=== PATIENT | female | born 1960 ===

== ENCOUNTER 2017-03-18 10:08 | Emergency (ER) | payer OTHER ==
[2017-03-18] MEDS ORDERED: Sodium Chloride 0.9% 1,000 ML IV ONE (10:59)
[2017-03-18] MEDS ORDERED: Sodium Chloride 0.9% 1,000 ML ONE (11:04)
--- NOTE | 2017-03-18 11:04 | C.PDOC ---
History Of Present Illness 56 y/o female presents to ED with complaints of vaginal bleeding for 35 days and onset suprapubic tenderness. Patient reports symptoms developed after a cervical biopsy. Patient was sent from Clinic for evaluation and patient states currently bleeding a little. Patient denies fever, n/v/d, urinary symptoms or any other complaints at this time. (Genoveva Joseph) History Per: Patient History/Exam Limitations: no limitations Onset/Duration Of Symptoms: Days Current Symptoms Are (Timing): Still Present Time Seen by Provider: 03/18/17 10:50 Chief Complaint (Nursing): Female Genitourinary Past Medical History Reviewed: Historical Data, Nursing Documentation, Vital Signs - Medical History PMH: Bronchitis Surgical History: Cholecystectomy Family History: States: No Known Family Hx - Social History Hx Alcohol Use: No Hx Substance Use: No - Immunization History Hx Tetanus Toxoid Vaccination: No Hx Influenza Vaccination: No Hx Pneumococcal Vaccination: No Review Of Systems Except As Marked, All Systems Reviewed And Found Negative. Constitutional: Negative for: Fever, Chills Gastrointestinal: Negative for: Nausea, Vomiting, Diarrhea Genitourinary: Positive for: Vaginal Bleeding. Negative for: Dysuria, Frequency Physical Exam - Physical Exam Appears: Non-toxic, No Acute Distress Skin: Normal Color, Warm Head: Atraumatic, Normacephalic Neck: Normal ROM Cardiovascular: Rhythm Regular, No Murmur Respiratory: Normal Breath Sounds, No Rales, No Rhonchi, No Wheezing Gastrointestinal/Abdominal: Soft, Tenderness (Mild suprapubic tenderness), No Guarding, No Rebound Extremity: Normal ROM, Capillary Refill (<2 seconds) Neurological/Psych: Oriented x3, Normal Motor, Normal Sensation, Normal Reflexes ED Course And Treatment O2 Sat by Pulse Oximetry: 100 (RA) Pulse Ox Interpretation: Normal Medical Decision Making Medical Decision Making: Orders: Labs (Genoveva Joseph) - PA / AUTOMOBILE REPOSSESSOR / Resident Statement MD/DO has reviewed & agrees with the documentation as recorded. - Scribe Statement The provider has reviewed the documentation as recorded by the Scribe - Scribe Statement Jamil Ascencio All medical record entries made by the Scribe were at my direction and personally dictated by me. I have reviewed the chart and agree that the record accurately reflects my personal performance of the history, physical exam, medical decision making, and the department course for this patient. I have also personally directed, reviewed, and agree with the discharge instructions and disposition. (Genoveva Joseph)
[2017-03-18 11:19] LABS: BASO % 0.7 % (0.0-2.0); EOS # 0.2 K/uL (0.0-0.7); EOS % 4.2 % (0.0-4.0); HEMATOCRIT 38.5 % (34.0-47.0); LYMPH # 1.2 K/uL (1.0-4.3); LYMPH % 29.8 % (20.0-40.0); MEAN CELL VOLUME 85.4 fL (81.0-99.0); MEAN CORPUSCULAR HEMOGLOBIN 28.5 pg (27.0-31.0); MEAN CORPUSCULAR HGB CONC 33.4 g/dL (33.0-37.0); MEAN PLATELET VOLUME 7.8 fL (7.2-11.7); MONO # 0.5 K/uL (0.0-0.8); MONO % 13.3 % (0.0-10.0); RED CELL DISTRIBUTION WIDTH 13.4 % (11.5-14.5)
--- NOTE | 2017-03-18 11:21 | C.PDOC ---
History Of Present Illness 56 y/o female presents to ED with complaints of vaginal bleeding for 35 days and onset suprapubic tenderness. Patient reports symptoms developed after a cervical biopsy. Patient was sent from Clinic for evaluation and patient states currently bleeding a little. Patient denies fever, n/v/d, urinary symptoms or any other complaints at this time. Time Seen by Provider: 03/18/17 10:50 Chief Complaint (Nursing): Female Genitourinary History Per: Patient History/Exam Limitations: no limitations Onset/Duration Of Symptoms: Days Current Symptoms Are (Timing): Still Present Past Medical History Reviewed: Historical Data, Nursing Documentation, Vital Signs Vital Signs: Last Vital Signs Temp 98.1 F 03/18/17 12:27 Pulse 75 03/18/17 12:27 Resp 20 03/18/17 12:27 BP 124/69 03/18/17 12:27 Pulse Ox 95 03/18/17 12:27 - Medical History PMH: Bronchitis Surgical History: Cholecystectomy Family History: States: No Known Family Hx - Social History Hx Alcohol Use: No Hx Substance Use: No - Immunization History Hx Tetanus Toxoid Vaccination: No Hx Influenza Vaccination: No Hx Pneumococcal Vaccination: No Review Of Systems Except As Marked, All Systems Reviewed And Found Negative. Constitutional: Negative for: Fever, Chills Gastrointestinal: Positive for: Abdominal Pain. Negative for: Nausea, Vomiting , Diarrhea Genitourinary: Positive for: Vaginal Bleeding. Negative for: Dysuria, Frequency Physical Exam - Physical Exam Appears: Non-toxic, No Acute Distress Skin: Normal Color, Warm Head: Atraumatic, Normacephalic Cardiovascular: Rhythm Regular, No Murmur Respiratory: Normal Breath Sounds, No Rales, No Rhonchi, No Wheezing Gastrointestinal/Abdominal: Soft, Tenderness (Mild suprapubic tenderness), No Guarding, No Rebound Extremity: Normal ROM, Capillary Refill (<2 seconds) Neurological/Psych: Oriented x3 ED Course And Treatment - Laboratory Results Result Diagrams: 03/18/17 11:14 03/18/17 11:14 Lab Interpretation: Normal O2 Sat by Pulse Oximetry: 100 (RA) Pulse Ox Interpretation: Normal - CT Scan/US No standard instances Other Rad Studies (CT/US): Read By Radiologist, Radiology Report Reviewed CT/US Interpretation: FINDINGS: UTERUS: Measures 6.4 x 2.8 x 4.9 cm. Fundal fibroid measures 2.6 x 2.3 x 2.4 cm. No other uterine mass identified. ENDOMETRIUM: Measures 2 mm in diameter. Unremarkable. CERVIX: No cervical abnormality identified. RIGHT OVARY: Measures 2.0 x 1.5 x 1.7 cm. No solid mass. Normal flow. LEFT OVARY: Measures 0.5 x 1.2 x 1.4 cm. No solid mass. Normal flow. FREE FLUID: No significant free fluid noted. OTHER FINDINGS: None. IMPRESSION: 2.6 cm fundal uterine fibroid. Otherwise unremarkable examination. Progress Note: treated with IVF NSS. On re-evaluation abdomen soft non-tender Reassessment Condition: Improved Medical Decision Making Medical Decision Making: Plan: Labs Disposition Counseled Patient/Family Regarding: Studies Performed, Diagnosis, Need For Followup, Rx Given - Disposition Referrals: [facility] [Outside] [facility] [Outside] [facility] [Outside] Alexander Muniz [Staff Provider] - Disposition: HOME/ ROUTINE Disposition Time: 12:30 Condition: STABLE Additional Instructions: Return to ED if any increase symptoms Prescriptions: Naproxen [Naprosyn] 1 tab PO BID PRN #25 tab PRN Reason: Pain Instructions: Dysfunctional Uterine Bleeding (ED) Forms: Work/School/Gym Excuse Print Language: OCCITAN - POA Present On Arrival: None - Clinical Impression Clinical Impression: Vaginal bleeding - PA / UNIT MANAGER / Resident Statement MD/DO has reviewed & agrees with the documentation as recorded. - Scribe Statement The provider has reviewed the documentation as recorded by the Naomiibjorge Ascencio All medical record entries made by the Sabine were at my direction and personally dictated by me. I have reviewed the chart and agree that the record accurately reflects my personal performance of the history, physical exam, medical decision making, and the department course for this patient. I have also personally directed, reviewed, and agree with the discharge instructions and disposition.
[2017-03-18 11:23] LABS: RBC URINE < 1 /hpf (0-3); URINE BILIRUBIN NEGATIVE (NEGATIVE); URINE BLOOD NEGATIVE (NEGATIVE); URINE COLOR Yellow (YELLOW); URINE GLUCOSE (UA) NORMAL (Normal); URINE KETONE NEGATIVE (NEGATIVE); URINE LEUKOCYTE ESTERASE NEG Leu/uL (Negative); URINE PROTEIN NEGATIVE (NEGATIVE); URINE UROBILINOGEN NORMAL mg/dL (0.2-1.0)
[2017-03-18 11:31] LABS: CHLORIDE 103 mmol/L (98-107); POTASSIUM 4.3 mmol/L (3.6-5.2); SODIUM 141 mmol/L (132-148)
[2017-03-18 11:33] LABS: BILIRUBIN,TOTAL 0.6 mg/dL (0.2-1.3); GFR AFRICAN-AMERICAN > 60
[2017-03-18 11:34] LABS: ALB/GLOB RATIO 0.7 (1.0-2.1); ALKALINE PHOSPHATASE 97 U/L (38-126); ALT/SGPT 22 U/L (9-52); AST/SGOT 29 U/L (14-36); BLOOD UREA NITROGEN 12 mg/dL (7-17); CARBON DIOXIDE 27 mmol/L (22-30); GLUCOSE,RANDOM 79 mg/dL (65-105)
[2017-03-18 11:35] LABS: CALCIUM 8.9 mg/dl (8.6-10.4)
--- NOTE | 2017-03-18 12:18 | US ---
HISTORY: vaginal bleeding COMPARISON: None available. TECHNIQUE: Transabdominal and transvaginal FINDINGS: UTERUS: Measures 6.4 x 2.8 x 4.9 cm. Fundal fibroid measures 2.6 x 2.3 x 2.4 cm. No other uterine mass identified. ENDOMETRIUM: Measures 2 mm in diameter. Unremarkable. CERVIX: No cervical abnormality identified. RIGHT OVARY: Measures 2.0 x 1.5 x 1.7 cm. No solid mass. Normal flow. LEFT OVARY: Measures 0.5 x 1.2 x 1.4 cm. No solid mass. Normal flow. FREE FLUID: No significant free fluid noted. OTHER FINDINGS: None. IMPRESSION: 2.6 cm fundal uterine fibroid. Otherwise unremarkable examination.
[2017-03-18 12:28] VITALS: BP 124/69; PULSE 75; RESP 20; TEMP 98.1
[2017-03-18 17:47] VITALS: O2SAT 100
== END 2017-03-18 12:58 | disposition home or self-care (01) ==
LOC: C.ER 10:08
DX: N93.9 Abnormal uterine and vaginal bleeding, unspecified (principal)

== ENCOUNTER 2017-04-03 11:05 | Day surgery (SDC) | payer OTHER ==
[2017-04-02 07:23] VITALS: BMI 23.7
[2017-04-03 11:41] VITALS: O2SAT 99
[2017-04-03] MEDS ORDERED: Lactated Ringer's 1,000 ML IV ONE (14:15)
[2017-04-03] MEDS ORDERED: Midazolam 2 MG/2 ML VIAL ONE (14:16)
[2017-04-03] MEDS ORDERED: Propofol 10 mg/ml Inj (20 ML) ONE ×2 (14:16→14:48)
[2017-04-03] MEDS ORDERED: Strong Iodine Topical Sol. 5%-10% ONE (14:33)
[2017-04-03] MEDS ORDERED: HYDROmorphone 0.5 mg/0.5 ml ISec IVP PRN (15:01)
--- NOTE | 2017-04-03 15:42 | PCM.SURG1 ---
Surgeon's Initial Post Op Note - Surgeon's Notes Surgeon: Dr Muniz Intercell Connector Placer: Genoveva Odell ( FP REsident ) Type of Anesthesia: General Endo Anesthesia Administered By: STEPHANIE Mckeon supervised by DR Jorge L Mckeon Pre-Operative Diagnosis: Severe Cervical Dysplasia Operative Findings: Normal sized uterus with the full squamocolumnar junction seen . IVF intake-200mls. EBL- 3mls. Urine output- 20mls Post-Operative Diagnosis: Same as preop diagnosis Operation Performed: LEEP cone biopsy using Conchis cone excissor Specimen/Specimens Removed: Cervical Tissue Estimated Blood Loss: EBL {In ML}: 3 Post-Op Condition: Good Date of Surgery/Procedure: 04/03/17 Time of Surgery/Procedure: 15:43
[2017-04-04 11:50] VITALS: BP 120/68; PULSE 70; RESP 18; TEMP 97.9
--- NOTE | 2017-04-06 17:08 | OP ---
DATE: 04/03/2017PREOPERATIVE DIAGNOSIS: Severe dysplasia of the cervix. POSTOPERATIVE DIAGNOSIS: Severe dysplasia of the cervix. PROCEDURE DONE: LEEP cone biopsy, using a Gottlieb cone excisor, performed on 04/03/2017. SURGEON: Dr. Muniz. GIFT SHOP ASSISTANT: Genoveva Odell, [facility] resident. TYPE OF ANESTHESIA: General endotracheal. ANESTHESIA ADMINISTERED BY: JULIOCESAR Mckeon, supervised by Dr. Jorge L Mckeon. COMPLICATIONS: There were no complications. OPERATIVE FINDINGS: Included a normal sized uterus, the floor of squamocolumnar junction was seen. There was a Lugol's free area in the path of the ectocervix from 1 o'clock to 3 o'clock after application of the Lugol's iodine. IV FLUID INTAKE: About 200 mL. ESTIMATED BLOOD LOSS: About 3 mL. URINE OUTPUT: About 20 mL of clear urine. DESCRIPTION OF PROCEDURE: After obtaining an informed consent, the patient was sent to the OR and put in a supine position on the OR table. After adequate general anesthesia, the patient was placed in the lithotomy position. The patient was then prepped and draped in the usual sterile fashion. A urinary bladder was drained using a straight cath with output of about 20 mL of clear urine. Using Cusco's speculum, the cervix was exposed and the findings were noted. Lugol's iodine was applied to the cervix and after allowing it to dry, a medium-sized Gottlieb cone excisor attached to the Bovie device was pushed into the substance of the cervix and a circumferential rotary motion of the excisor was done to obtain a cone of cervical tissue including both the ectocervix and endocervix was excised. This tissue was taken out and was sent for pathology. Once the procedure has been completed, the bleeding surfaces were treated with electrocautery, though hemostasis was achieved. Monsel solution was applied to the raw surfaces to help in additional hemostasis. All the instruments and gauze used were removed from the placenta, from the vagina after the procedure. The patient was placed in a supine position and was sent to the recovery room awake and in stable condition. All counts were correct x3. Alexander Muniz MD [facility] # [id number] KARTIK
== END 2017-04-03 17:20 | disposition home or self-care (01) ==
LOC: C.SDS 11:05
PROVIDERS: ATTEND Obstetrics & Gynecology
DX: D06.9 Carcinoma in situ of cervix, unspecified (principal); D25.9 Leiomyoma of uterus, unspecified; Q60.0 Renal agenesis, unilateral; J30.9 Allergic rhinitis, unspecified; E55.9 Vitamin D deficiency, unspecified; Z87.891 Personal history of nicotine dependence; Z98.890 Other specified postprocedural states; Z90.49 Acquired absence of other specified parts of digestive tract; Z98.51 Tubal ligation status; Z79.899 Other long term (current) drug therapy
CPT/HCPCS: 57522; 88305; J1170; J2250; J2704; J3010; J7120

== ENCOUNTER 2017-06-18 08:05 | Inpatient (IN) | payer OTHER ==
[2017-05-27 09:38] VITALS: BMI 26.2
--- NOTE | 2017-06-18 00:05 | CP.PCM.HP ---
History of Present Illness - History of Present Illness History of Present Illness: 57yo female with h/o severe cervical dysplasia prefering SHIKHA for the management. The risks as well as the benefits of the procedure were discussed. Questions from pt were answered. A consent was obtained. Present on Admission - Present on Admission Any Indicators Present on Admission: No Past Patient History - Past Medical History & Family History Past Medical History?: Yes - Past Social History Smoking Status: Former Smoker - CARDIAC Hx Cardiac Disorders: No - PULMONARY Hx Respiratory Disorders: Yes Hx Bronchitis: Yes - NEUROLOGICAL Hx Neurological Disorder: No - HEENT Hx HEENT Problems: Yes Other/Comment: HX: SEASONAL ALLERGIC RHINITIS - RENAL Hx Chronic Kidney Disease: Yes Other/Comment: HX: RENAL AGENESIS, UNILATERAL - ENDOCRINE/METABOLIC Hx Endocrine Disorders: No - HEMATOLOGICAL/ONCOLOGICAL Hx Blood Disorders: Yes Other/Comment: HX: VITAMIN D DEFICENCY - INTEGUMENTARY Hx Dermatological Problems: Yes Other/Comment: HX: RIGHT BREAST BIOPSY - MUSCULOSKELETAL/RHEUMATOLOGICAL Hx Musculoskeletal Disorders: No - GASTROINTESTINAL Hx Gastrointestinal Disorders: No - GENITOURINARY/GYNECOLOGICAL Hx Genitourinary Disorders: Yes Other/Comment: HX: UTERINE POLYP. HX: CERVICAL INTRAEPITHELIAL NEOPLASIA-GRADE3 ; UTERINE LEIOMYOMA - PSYCHIATRIC Hx Psychophysiologic Disorder: No - SURGICAL HISTORY Hx Surgeries: Yes Hx Breast Biopsy: Yes (right) Hx Section: Yes Hx Cholecystectomy: Yes Hx Tubal Ligation: Yes Other/Comment: HX: UTERINE POLYP REMOVED. HX: LEEP CONE BIOPSY (04/03/17) - ANESTHESIA Hx Anesthesia: Yes Hx Anesthesia Reactions: No Meds Allergies/Adverse Reactions: Allergies Allergy/AdvReac Type Severity Reaction Status Date / Time SEAFOOD Allergy RASH Uncoded 04/03/17 11:25 Assessment & Plan (1) CLAIR III (cervical intraepithelial neoplasia grade III) with severe dysplasia Status: Acute - Assessment and Plan (Free Text) Plan: vocational school teacher to the OR IV Fluids Mefoxin 2 gm Sequential compression device. - Date & Time Date: 06/18/17 Time: 07:15
[2017-06-18] MEDS ORDERED: Clindamycin 2% Vaginal Cream(40 gm) ONE (10:16)
[2017-06-18] MEDS ORDERED: Vasopressin 20 Units/ml Inj ONE (10:16)
[2017-06-18] MEDS ORDERED: Rocuronium 10 mg/ml (5 ml) ONE (12:01)
[2017-06-18] MEDS ORDERED: Propofol 10 mg/ml Inj (20 ML) ONE (12:01)
[2017-06-18] MEDS ORDERED: Midazolam 2 MG/2 ML VIAL ONE (12:01)
[2017-06-18] MEDS ORDERED: Lactated Ringer's 1,000 ML IV ONE ×6 (12:01→17:00)
[2017-06-18] MEDS ORDERED: Lidocaine Hydrochloride 5 ML INJ ONE (12:01)
[2017-06-18] MEDS: ceFAZolin IV 2 gm in Dextrose 1 GM/50 ML BAG IVPB ONE ×2 (12:01→12:35)
[2017-06-18] MEDS ORDERED: Morphine 4 MG/ML VIAL ONE ×2 (12:43→14:17)
[2017-06-18] MEDS ORDERED: Neostigmine Methylsulfate 3mg/3ml Syringe IV ONE (13:47)
[2017-06-18] MEDS ORDERED: Labetalol 25mg/5ml Syringe IVP PRN (14:56)
[2017-06-18] MEDS: HYDROmorphone 0.5 mg/0.5 ml ISec IVP PRN ×3 (15:02→16:52)
[2017-06-18 16:00] VITALS: O2SAT 100
[2017-06-18] MEDS ORDERED: Lactated Ringer's 1,000 ML IV SCH (16:30)
[2017-06-18] MEDS: cefOXitin IV 2 gm in Dextrose 2 GM/50 ML BAG IVPB SCH (17:05)
--- NOTE | 2017-06-18 21:30 | PCM.SURG1 ---
Surgeon's Initial Post Op Note - Surgeon's Notes Surgeon: Dr Muniz Warehouse Handler: Amalia Sauceda( FP Resident) Type of Anesthesia: General Endo Anesthesia Administered By: STEPHANIE Gomes, Supervised by Dr Madden Pre-Operative Diagnosis: Severe Cervical Dysplasia( CLAIR 3 ) Operative Findings: Normal sized Bicornuate uterus, Vaginal mucosa atrophic and the canal shortened with atrophy. IVF intake - 1600mls. EBL- 50mls. Urine Output- 200mls Post-Operative Diagnosis: Same as preop diagnosis Operation Performed: Total vaginal Hysterectomy Specimen/Specimens Removed: Uterus with cervix Estimated Blood Loss: EBL {In ML}: 50 Post-Op Condition: Good Date of Surgery/Procedure: 06/18/17 Time of Surgery/Procedure: 14:20
[2017-06-19] MEDS: cefOXitin IV 2 gm in Dextrose 2 GM/50 ML BAG IVPB SCH ×2 (00:19→08:19)
[2017-06-19 00:22] VITALS: BP 135/85; PULSE 74; RESP 20; TEMP 97.2
[2017-06-19 08:03] LABS: BASO % 0.2 % (0.0-2.0); HEMATOCRIT 34.4 % (34.0-47.0); LYMPH # 1.3 K/uL (1.0-4.3); LYMPH % 19.3 % (20.0-40.0); MEAN CELL VOLUME 84.5 fL (81.0-99.0); MEAN CORPUSCULAR HEMOGLOBIN 29.2 pg (27.0-31.0); MEAN CORPUSCULAR HGB CONC 34.6 g/dL (33.0-37.0); MEAN PLATELET VOLUME 8.1 fL (7.2-11.7); MONO # 0.5 K/uL (0.0-0.8); MONO % 8.2 % (0.0-10.0); RED CELL DISTRIBUTION WIDTH 13.6 % (11.5-14.5); WHITE BLOOD COUNT 6.5 K/uL (4.8-10.8)
[2017-06-19 08:14] LABS: CHLORIDE 103 mmol/L (98-107); POTASSIUM 4.2 mmol/L (3.6-5.2); SODIUM 140 mmol/L (132-148)
[2017-06-19 08:16] LABS: GFR AFRICAN-AMERICAN > 60
[2017-06-19 08:17] LABS: BLOOD UREA NITROGEN 10 mg/dL (7-17); CALCIUM 8.6 mg/dl (8.6-10.4); CARBON DIOXIDE 25 mmol/L (22-30); GLUCOSE,RANDOM 87 mg/dL (65-105)
[2017-06-19] MEDS ORDERED: Enoxaparin 40 mg Syringe SC SCH (16:28)
--- NOTE | 2017-06-24 06:19 | OP ---
PROCEDURE DATE: 06/18/2017 PREOPERATIVE DIAGNOSIS: A 57-year-old female with severe cervical dysplasia, requesting for vaginal hysterectomy. POSTOPERATIVE DIAGNOSIS: A 57-year-old female with severe cervical dysplasia, requesting for vaginal hysterectomy. PROCEDURE: Total vaginal hysterectomy performed on 06/18/2017. SURGEON: Alexander Muniz MD PAVING FOREMAN: Dr. Umanzor and Dr. Adia Celestin ([facility] resident). Assistance to this procedure was needed for exposure of tissues during the procedure. The assistants remained with the surgery throughout its entire length. TYPE OF ANESTHESIA: General endotracheal. ANESTHESIA ADMINISTERED BY: Shalom BROWN, supervised by Dr. Madden. OPERATIVE FINDINGS: Normal-sized bicornuate uterus, vaginal mucosa was atrophic, and vaginal canal shortened with moderate atrophic changes. IV FLUID INTAKE: 1600 mL. ESTIMATED BLOOD LOSS: 50 mL. URINE OUTPUT: 200 mL. COMPLICATIONS: There were no complications. SPECIMEN: Uterus with cervix sent for pathology. DESCRIPTION OF PROCEDURE: The patient was seen at a preop area. The risks, benefits, indications and alternatives of the procedure were reviewed with the patient. The patient agreed to the procedure and signed a consent form. The patient was taken to the OR with IV running and Joseph catheter in place. General anesthesia was obtained without difficulty. The patient was placed in the dorsal lithotomy position with Juan-type stirrups. The buttocks was positioned slightly over the edge of the table. Examination under anesthesia revealed the findings above. The patient was prepped and draped. A weighted-speculum was placed into the vagina. Anterior and posterior lips of his cervix were grasped with a double-toothed tenaculum with outward traction applied at the tenaculum. A circumferential incision was made with a Bovie at the cervical vaginal junction. The incision was carried down to the pericervical fascia allowing the cervix to separate from the vaginal mucosa. The bleeding spots were coagulated. A posterior cul-de-sac was then entered sharply with Molina scissors with a tip pointing to the uterus. A clear peritoneal fluid was noted. A midline posterior peritoneum was sutured to the vagina mucosa for later identification. The weighted-speculum was removed and a long weighted speculum was inserted into the cul-de-sac. The uterosacral ligaments were clamped with Melina clamps, cut and sutured ligated followed with a cardinal ligament. Significant uterine descent was noted. Then, attention was tend to entering the anterior peritoneum. With gentle downward traction on the cervix, peritoneum was identified, picked up and entered sharply. A right angled retractor was inserted into the vesicouterine space. The uterine vessels were identified, clamped, and cut. The pedicles were doubly ligated. Broad ligament and round ligaments were then clamped, cut and suture ligated. Finally, the ovarian ligament and the fallopian tubes were clamped, cut, and doubly ligated. The uterus was removed through the vagina. Ovaries and tubes were found to be normal. Examination of all pedicles revealed good hemostasis. The vaginal angles were sutured to the uterosacral ligament. The vaginal calf including the posterior peritoneum was closed with [id number] sutures. All instruments were removed from the vagina and all counts were correct x3. The vagina was packed with Bacitracin-soaked gauze. The patient was taken to recovery room in a stable condition. Alexander Muniz MD [facility]
== END 2017-06-19 16:00 | disposition home or self-care (01) | DRG 358 ==
LOC: C.SDS 08:05 → C.4M 16:25
PROVIDERS: ADMIT Obstetrics & Gynecology; ATTEND Obstetrics & Gynecology
PROC: 0UTC7ZZ Resection of Cervix, Via Natural or Artificial Opening (ICD-10-PCS; 2017-06-18)
PROC: 0UT97ZZ Resection of Uterus, Via Natural or Artificial Opening (ICD-10-PCS; principal; 2017-06-18 10:30)
DX: D06.7 Carcinoma in situ of other parts of cervix (principal); Q51.3 Bicornate uterus; N95.2 Postmenopausal atrophic vaginitis; N18.9 Chronic kidney disease, unspecified; Q60.2 Renal agenesis, unspecified; J30.2 Other seasonal allergic rhinitis; Z87.891 Personal history of nicotine dependence

== ENCOUNTER 2017-10-26 09:11 | Day surgery (SDC) | payer OTHER ==
[2017-05-27 09:38] VITALS: BMI 26.2
[2017-10-26] MEDS ORDERED: Propofol 10 mg/ml Inj (20 ML) ONE (12:29)
[2017-10-26] MEDS ORDERED: Midazolam 2 MG/2 ML VIAL ONE (12:29)
[2017-10-26 12:33] VITALS: O2SAT 100
[2017-10-26 15:39] VITALS: BP 145/68; PULSE 68; RESP 17; TEMP 97.8
== END 2017-10-26 14:40 | disposition home or self-care (01) ==
LOC: C.ENDO 09:11
PROVIDERS: ATTEND Internal Medicine Gastroenterology
DX: Z12.11 Encounter for screening for malignant neoplasm of colon (principal); R10.13 Epigastric pain; K64.8 Other hemorrhoids; K29.70 Gastritis, unspecified, without bleeding; Z87.891 Personal history of nicotine dependence; Z80.0 Family history of malignant neoplasm of digestive organs; Z80.1 Family history of malignant neoplasm of trachea, bronchus and lung; Z79.899 Other long term (current) drug therapy
CPT/HCPCS: 43239; 45378; 88305; 88312; 88342; J2250; J2704

== ENCOUNTER 2018-12-20 12:12 | Outpatient (CLI) | payer OTHER | END 2018-12-20 12:13 | disposition home or self-care (01) | LOC: C.CTH 12:12 ==

== ENCOUNTER 2018-12-20 12:15 | Outpatient (CLI) | payer OTHER | END 2018-12-20 12:16 | disposition home or self-care (01) | LOC: C.CTH 12:15 | DX: E88.01 Alpha-1-antitrypsin deficiency (principal) ==